=== PATIENT | male | born 1950 | race Caucasian/White ===

== ENCOUNTER → 2018-07-22 | Day surgery (SDC) | payer BC, MEDICARE ==
[~2018-07-22] MED LIST: Propofol 200 MG/20 ML SDV IV ONE
[2018-07-22] MEDS: Lactated Ringers 1,000 ML IV SCH (09:46)
--- NOTE | 2018-07-22 13:56 | OR ---
DATE OF OPERATION: 07/22/2018 PREOPERATIVE DIAGNOSIS: MICROCYTIC ANEMIA WITH HEME-POSITIVE STOOL. POSTOPERATIVE DIAGNOSIS: MICROCYTIC ANEMIA WITH HEME-POSITIVE STOOL. SURGEON: Cam Aquino MD PROCEDURE: 1. EGD WITH BIOPSY X3, SANDRA. 2. FULL-LENGTH COLONOSCOPY. ANESTHESIA: HAMMERER TAB. COMPLICATIONS: None. SPECIMEN: 1. Antral SANDRA. 2. Fundal biopsy x3. FINDINGS: 1. Full-length EGD. 2. Large fundal ulcer, not actively bleeding. 3. Hiatal hernia without esophagitis. 4. Full-length colonoscopy. 5. Pandiverticulosis, moderate. RECOMMENDATIONS: The patient will be placed on proton pump therapy and monitored by his primary, Dr. Ochoa Garcia, would recommend a followup EGD in 6 to 8 weeks. Routine colonoscopy every 10 years. INDICATIONS: The patient is a 68-year-old male who was in for a routine physical, was found to be anemic and microcytic, and I believe had heme-positive stool. He was sent for upper and lower endoscopy. DESCRIPTION OF PROCEDURE: The patient was prepped and draped, placed in the left lateral decubitus position. A lubricated Olympus gastroscope inserted over bit, advanced to the cricopharyngeus area, and easily intubated in the esophagus. Esophageal lining was benign in its entire course. Z-line crisp around 37.5 cm. Hiatal hernia was present with spontaneous GERD, but no distal esophagitis, stricturing, ulceration, or George's changes seen. The upper fundus has a large cratered ulcer without active bleeding. There is adherent exudative plaque in the base of this ulcer. Three separate biopsies of the edges of this ulcer were obtained. Resolution of bleeding from those sites was spontaneous. The rest of the fundus and antrum were benign without any other signs of peptic ulcer disease, gastritis, etc. Antral CLOtest was obtained. The scope was advanced through the pylorus into the second portion of the duodenum. This and the duodenal bulb were benign. The scope was retroflexed in the stomach and otherwise no upper fundus or cardia lesions were seen other than the hernia visualized from below. Air was then suctioned, the scope removed without complication. A lubricated Olympus colonoscope was then inserted and easily advanced to the cecum. Direct visualization of the ileocecal valve and appendiceal orifice was accomplished. The bowel prep was fine. Upon withdrawal of the scope, the patient has pandiverticulosis, most severe as expected in the sigmoid, but there is diverticula present in the right colon, moderate in severity throughout the length of the colon, however, I could find no signs of any polyps, mass, ulceration, bleeding sites, vascular abnormalities, or signs of colitis. No other signs of etiology of blood loss. The rectal vault was benign. Retroflexion showed no perianal lesions. Air was suctioned, scope removed without complication. IMELDA/BRAULIO /[id number] cc: Ochoa Garcia [address] [id number]
== END ==
LOC: CC.SDS 09:23
PROVIDERS: ATTEND Family Medicine
DX: D50.9 Iron deficiency anemia, unspecified (principal); K29.50 Unspecified chronic gastritis without bleeding; B96.81 Helicobacter pylori [H. pylori] as the cause of diseases classified elsewhere; R19.5 Other fecal abnormalities; K57.30 Diverticulosis of large intestine without perforation or abscess without bleeding; E78.5 Hyperlipidemia, unspecified; N40.0 Benign prostatic hyperplasia without lower urinary tract symptoms; Z88.0 Allergy status to penicillin
CPT/HCPCS: 87081; J2704; J7120